=== PATIENT | male | born 1950 | race Caucasian/White ===

== ENCOUNTER 2021-05-25 13:52 | Emergency (ER) | payer MEDICARE ==
[~2021-05-25] VITALS: Ht 165.1 cm; Wt 65.0 kg
[2021-05-25] MEDS ORDERED: KEFLEX500 MG PO (15:39)
[2021-05-25 15:49] VITALS: BP 136/79
== END 2021-05-25 15:52 | disposition home or self-care (01) ==
LOC: EDBD 13:52 → ED 13:52
DX: S81.002A Unspecified open wound, left knee, initial encounter (principal); L08.9 Local infection of the skin and subcutaneous tissue, unspecified; X58.XXXA Exposure to other specified factors, initial encounter

== ENCOUNTER 2022-01-15 15:17 | Emergency (ER) | payer MEDICARE ==
[~2022-01-15] VITALS: Ht 165.1 cm; Wt 68.0 kg
[~2022-01-15 15:17] MED LIST: KEFLEX500 MG PO
[2022-01-15 16:45] VITALS: BP 143/88
[2022-01-15 18:13] LABS: HEMATOCRIT 44.8 % (39.0-50.0); HEMOGLOBIN 14.7 g/dl (14.0-18.0); IMMATURE GRANULOCYTES 0.2 % (0.0-5.0); MEAN CELL VOLUME 99.8 fL CALC (80.0-100.0); MEAN CORPUSCULAR HGB 32.7 pG CALC (26.0-32.0); MEAN CORPUSCULAR HGB CONC 32.8 g/dL CAL (32.0-36.0); NEUT# 3.64 thou/uL (1.82-7.42); RED BLOOD COUNT 4.49 mill/uL (4.70-6.10); RED CELL DISTRI WIDTH 12.8 % (11.5-15.5)
[2022-01-15 18:14] LABS: URINE BILIRUBIN - DIPSTICK NEGATIVE (NEGATIVE); URINE BLOOD DIPSTICK NEGATIVE (NEGATIVE); URINE COLOR YELLOW; URINE GLUCOSE - DIPSTICK NEGATIVE (NEGATIVE); URINE KETONE TRACE mg/dL (NEGATIVE); URINE LEUK ESTERASE NEGATIVE (NEGATIVE); URINE PH 5.5 (4.5-8.0); URINE PROTEIN - DIPSTICK NEGATIVE (NEG-TRACE); URINE SPECIFIC GRAVITY >=1.030; URINE UROBILINOGEN - DIPSTICK 0.2 E.U./dL (0.2)
[2022-01-15 18:16] LABS: URINE NITRITE - DIPSTICK NEGATIVE (Negative)
[2022-01-15 18:29] LABS: ALBUMIN 3.9 g/dL (3.2-5.0); ALKALINE PHOSPHATASE 55 u/l (38-126); ANION GAP 13 (6-22 (CALC)); BILIRUBIN, TOTAL 0.9 mg/dL (0.0-1.4); BUN 17 mg/dL (8-23); BUN/CREATININE RATIO 19 (12-20 (CALC)); CARBON DIOXIDE 25 mmol/l (22-30); CHLORIDE 106 mmol/l (95-108); CREATININE 0.9 mg/dL (0.7-1.3); GFR > 60 ML/MIN (>=60 (CALC)); GFR FOR AFR.AMER. > 60 ML/MIN (>=60 (CALC)); POTASSIUM 4.2 mmol/l (3.5-5.1); SGOT/AST 28 u/l (19-48); SODIUM 140 mmol/l (137-146); TOTAL PROTEIN 7.1 g/dL (6.3-8.2)
== END 2022-01-15 19:42 | disposition home or self-care (01) ==
LOC: ED 15:17
PROVIDERS: Emergency Medicine
DX: R42 Dizziness and giddiness (principal); Z20.822 Contact with and (suspected) exposure to COVID-19

== ENCOUNTER 2022-07-09 13:28 | Emergency (ER) | payer MEDICARE ==
[~2022-07-09] VITALS: Ht 165.1 cm; Wt 68.1 kg
[2022-07-09] VITALS (9 sets, daily range): BP systolic 118–153; BP diastolic 62–95
[2022-07-09 17:04] LABS: HEMATOCRIT 42.4 % (39.0-50.0); IMMATURE GRANULOCYTES 0.2 % (0.0-5.0); MEAN CELL VOLUME 98.8 fL CALC (80.0-100.0); MEAN CORPUSCULAR HGB 32.6 pG CALC (26.0-32.0); NEUT# 3.48 thou/uL (1.82-7.42); RED BLOOD COUNT 4.29 mill/uL (4.70-6.10); RED CELL DISTRI WIDTH 12.8 % (11.5-15.5)
[2022-07-09 17:13] LABS: ALBUMIN 3.9 g/dL (3.2-5.0); ALKALINE PHOSPHATASE 59 u/l (38-126); ANION GAP 9 (6-22 (CALC)); BILIRUBIN, TOTAL 0.7 mg/dL (0.0-1.4); BUN 17 mg/dL (8-23); BUN/CREATININE RATIO 20 (12-20 (CALC)); CARBON DIOXIDE 27 mmol/l (22-30); CHLORIDE 110 mmol/l (95-108); CREATININE 0.9 mg/dL (0.7-1.3); GFR FOR AFR.AMER. > 60 ML/MIN (>=60 (CALC)); GFR OTHER RACES > 60 ML/MIN (>=60 (CALC)); POTASSIUM 4.9 mmol/l (3.5-5.1); SGOT/AST 27 u/l (19-48); SODIUM 142 mmol/l (137-146)
[2022-07-09 18:37] LABS: URINE BILIRUBIN - DIPSTICK NEGATIVE (NEGATIVE); URINE BLOOD DIPSTICK NEGATIVE (NEGATIVE); URINE COLOR YELLOW; URINE GLUCOSE - DIPSTICK NEGATIVE (NEGATIVE); URINE KETONE NEGATIVE (NEGATIVE); URINE LEUK ESTERASE NEGATIVE (NEGATIVE); URINE PROTEIN - DIPSTICK NEGATIVE (NEG-TRACE); URINE SPECIFIC GRAVITY >=1.030; URINE UROBILINOGEN - DIPSTICK 0.2 E.U./dL (0.2)
[2022-07-09 18:40] LABS: URINE NITRITE - DIPSTICK NEGATIVE (Negative)
[2022-07-09] MEDS ORDERED: ULTRAM50 M1 PO (20:59)
[2022-07-09] MEDS ORDERED: CYCLOBENZAPRINE10 MG PO (20:59)
== END 2022-07-09 21:15 | disposition home or self-care (01) ==
LOC: ED 13:28
PROVIDERS: Nurse Practitioner
DX: M54.50 Low back pain, unspecified (principal)

== ENCOUNTER 2024-12-14 19:32 | Emergency (ER) | payer MEDICARE ==
[~2024-12-14] VITALS: Ht 165.1 cm; Wt 65.7 kg
[~2024-12-14 19:32] MED LIST changes: +CYCLOBENZAPRINE10 MG PO; +ULTRAM50 M1 PO
[2024-12-14 22:48] VITALS: BP 166/96
[2024-12-14] MEDS ORDERED: FLUORESCEIN SODIUM 1 MG EA OU ONE (22:50)
[2024-12-14] MEDS ORDERED: TETRACAINE HCL 0.5 %/4 ML SOL OD ONE (22:50)
[2024-12-14] MEDS ORDERED: GENTAMICIN SULFATE (OPHTH) 5 ML BTL OD ONE (23:00)
[2024-12-14 23:01] VITALS: BP 158/96
[2024-12-14] MEDS ORDERED: GENTAMICIN0.3 % OD (23:01)
[2024-12-14 23:30] VITALS: BP 149/82
== END 2024-12-14 23:36 | disposition home or self-care (01) ==
LOC: ED 19:32
DX: S05.01XA Injury of conjunctiva and corneal abrasion without foreign body, right eye, initial encounter (principal); X58.XXXA Exposure to other specified factors, initial encounter; Y93.H2 Activity, gardening and landscaping; Y92.007 Garden or yard of unspecified non-institutional (private) residence as the place of occurrence of the external cause

== ENCOUNTER 2024-12-25 14:55 | Emergency (ER) | payer MEDICARE ==
[~2024-12-25] VITALS: Ht 165.1 cm; Wt 68.9 kg
[2024-12-25] VITALS (9 sets, daily range): BP systolic 116–131; BP diastolic 72–84
[~2024-12-25 14:55] MED LIST changes: +GENTAMICIN0.3 % OD
[2024-12-25 16:46] LABS: URINE BLOOD DIPSTICK Negative (NEGATIVE); URINE GLUCOSE - DIPSTICK Negative (NEGATIVE); URINE KETONE 15 mg/dL (NEGATIVE); URINE LEUK ESTERASE Negative (NEGATIVE); URINE NITRITE - DIPSTICK Negative (Negative); URINE PH 5.5 (4.5-8.0); URINE PROTEIN - DIPSTICK 30 mg/dL (NEG-TRACE); URINE UROBILINOGEN - DIPSTICK 0.2 E.U./dL (0.2)
[2024-12-25 16:47] LABS: URINE COLOR Yellow; URINE EPITHELIAL CELLS MODERATE EPI/hpf (0-FEW); URINE MUCUS MODERATE hpf (NONE-FEW)
[2024-12-25 16:48] LABS: BASO% 0.3 % (0-3); EOS% 1.1 % (0-8); IMMATURE GRANULOCYTES 0.3 % (0.0-5.0); LYMPH% 29.5 % (15-41); MEAN CELL VOLUME 94.8 fL CALC (80.0-100.0); MEAN CORPUSCULAR HGB CONC 33.8 g/dL CAL (32.0-36.0); MONO% 12.7 % (2-13); NEUT# 1.98 thou/uL (1.82-7.42); NEUT% 56.1 % (42-76); RED BLOOD COUNT 5.37 mill/uL (4.70-6.10); RED CELL DISTRI WIDTH 12.7 % (11.5-15.5)
[2024-12-25 16:50] LABS: HEMATOCRIT 50.9 % (39.0-50.0); HEMOGLOBIN 17.2 g/dl (14.0-18.0)
[2024-12-25 17:06] LABS: ALBUMIN 4.1 g/dL (3.2-5.0); BILIRUBIN, TOTAL 0.9 mg/dL (0.2-1.3); POTASSIUM 4.1 mmol/l (3.5-5.1); TOTAL PROTEIN 7.1 g/dL (6.3-8.2)
[2024-12-25] MEDS ORDERED: MEDDOSEPAK PO (18:16)
[2024-12-25] MEDS ORDERED: ZPAK PO (18:16)
== END 2024-12-25 18:29 | disposition home or self-care (01) ==
LOC: ED 14:55
PROVIDERS: Nurse Practitioner
DX: J02.9 Acute pharyngitis, unspecified (principal); Z20.822 Contact with and (suspected) exposure to COVID-19